=== PATIENT | female | born 1975 | race Two or more races ===

== ENCOUNTER 2023-04-13 11:41 | Emergency (ER) | payer MEDICAID, OTHER ==
[~2023-04-13] VITALS: Ht 154.9 cm; Wt 81.2 kg
[2023-04-13 14:03] VITALS: BP 107/84; PULSE 80; RESP 80; TEMP 98; O2SAT 100
[2023-04-13] MEDS ORDERED: PANT40TA2 PO (14:24)
== END 2023-04-13 14:26 | disposition home or self-care (01) ==
LOC: ER 11:41
DX: K29.70 Gastritis, unspecified, without bleeding (principal); Z79.899 Other long term (current) drug therapy; Z88.0 Allergy status to penicillin

== ENCOUNTER 2024-04-23 13:14 | Emergency (ER) | payer MEDICAID ==
[~2024-04-23] VITALS: Ht 154.9 cm; Wt 86.8 kg
[~2024-04-23 13:14] MED LIST: PANT40TA2 PO
[2024-04-23 14:44] VITALS: BP 116/87; PULSE 74; RESP 18; TEMP 98.1; O2SAT 99
[2024-04-23] MEDS: IBUPROFEN 800 MG TAB PO ONE (14:54)
--- NOTE | 2024-04-23 14:58 | ED.PDOC ---
History of Present Illness HPI Comments A 49 YEAR OLD FEMALE PRESENTS TO THE ED WITH COMPLAINT OF RIGHT ANKLE PAIN. PATIENT STATES SHE FRACTURED HER RIGHT ANKLE 1 WEEK AGO, BUT WAS ONLY PRESCRIBED NAPROXEN AND NOTES THIS MEDICATION HAS NOT BEEN HELPING HER PAIN. PATIENT IS REQUESTING A DIFFERENT PAIN MEDICATION IN THE ED. PATIENT DENIES FEVER, CHILLS, SHORTNESS OF BREATH, CHEST PAIN, ABDOMINAL PAIN, NAUSEA, VOMITING, HEADACHE, OR OTHER COMPLAINTS. NO OTHER SYMPTOMS OR MODIFYING FACTORS AT THIS TIME. PATIENT IS ALERT, ORIENTED X 4, AND HAS STEADY GAIT. Chief Complaint: Lower Extremity Time Seen by MD: 13:33 Reviewed Notes: Nurses Notes, Medications, Allergies Allergies: Coded Allergies: Penicillins (Verified Allergy, Unknown, 04/13/23) Home Meds Active Scripts Ibuprofen (Ibuprofen) 800 Mg Tab, 1 TAB PO TID, #30 TAB Prov:SOTERO MARQUEZ 04/23/24 Pantoprazole Sodium Sesquihydr (Protonix) 40 Mg Tab, 40 MG PO DAILY for 30 Days, #30 TAB 0 Refills Prov:NICANOR GRIFFITH SPRAYER AUTOMATIC SPRAY MACHINE 04/13/23 Information Source: Patient Mode of Arrival: Wheelchair Severity: Moderate Timing: Days Duration: Since onset, Days Prehospital treatment: None Medication Refill: For: Pain, For: Other (RIGHT ANKLE PAIN) Past Medical History PAST MEDICAL HISTORY: Denies Surgical History: Denies all surgeries GEOGRAPHY HEAD History: No Pertinent GEOGRAPHY HEAD History Family History Family History: Reviewed,noncontributory to illness Social History Smoker: Non-Smoker Alcohol: Denies ETOH Use Drugs: Denies Drug Use Lives In: Home Constitutional: denies: chills, diaphoresis, fatigue, fever, malaise, sweats, weakness, others EENTM: denies: blurred vision, double vision, ear bleeding, ear discharge, ear drainage, ear pain, ear ringing, eye pain, eye redness, hearing loss, mouth pain, mouth swelling, nasal discharge, nose bleeding, nose congestion, nose pain, photophobia, tearing, throat pain, throat swelling, voice changes, others Respiratory: denies: cough, hemoptysis, orthopnea, SOB at rest, shortness of breath, SOB with excertion, stridor, wheezing, others Cardiovascular: denies: chest pain, dizzy spells, diaphoresis, Dyspnea on exertion, edema, irregular heart beat, left arm pain, lightheadedness, palpitations, PND, syncope, others Gastrointestinal: denies: abdomen distended, abdominal pain, blood streaked bowels, constipated, diarrhea, dysphagia, difficulty swallowing, hematemesis, melena, nausea, poor appetite, poor fluid intake, rectal bleeding, rectal pain, vomiting, others Genitourinary: denies: abnormal vagina bleeding, burning, dyspareunia, dysuria, flank pain, frequency, hematuria, incontinence, pain, , vagina discharge, urgency, others Neurological: denies: dizziness, fainting, headache, left sided numbness, left sided weakness, numbness, paresthesia, pre-existing deficit, right sided numbness, right sided weakness, seizure, speech problems, tingling, tremors, weakness, others Musculoskeletal: reports: joint pain, others (RIGHT ANKLE PAIN); denies: back pain, gout, joint swelling, muscle pain, muscle stiffness, neck pain Integumetry: denies: bruises, change in color, change in hair/nails, dryness, laceration, lesions, lumps, rash, wounds, others Allergic/Immunocompromised: denies: Difficulty Healing, Frequent Infections, Hives, Itching, others Hematologic/Lymphatic: denies: anemia, blood clots, easy bleeding, easy bruising, swollen glands, others Endocrine: denies: excessive hunger, excessive sweating, excessive thirst, excessive urination, flushing, intolerance to cold, intolerance to heat, une xplained weight gain, unexplained weight loss, others Psychiatric: denies: anxiety, bipolar disorder, depression, hopeless, panic disorder, schizophrenia, sleepless, suicidal, others All Other Systems: Reviewed and Negative Physical Exam General Appearance: No Apparent Distress, Obese HEENT: Normal ENT Inspection, PERRL/EOMI, Pharynx Normal, TMs Normal Neck: Full Range of Motion, Non-Tender, Normal, Normal Inspection Respiratory: Chest Non-Tender, Lungs Clear, No Accessory Muscle Use, No Res piratory Distress, Normal Breath Sounds Cardiovascular: No Edema, No JVD, No Murmur, No Gallop, Normal Peripheral Pulses, Regular Rate/Rhythm Breast Exam: Deferred Gastrointestinal: No Organomegaly, Non Tender, No Pulsatile Mass, Normal Bowel Sounds, Soft Genitalia: Deferred Pelvic: Deferred Rectal: Deferred Extremities: Decreased range of motion, No calf tenderness, Normal capillary refill, No pedal edema, Tender (ON RIGHT ANKLE, NO DEFORMITY, SPLINT INTACT ON RIGHT LOWER EXTREMITY, NEUROVASCULAR INTACT. ) Musculoskeletal : Apperance: Normal Neurologic: Alert, restaurant delivery driver II-XII nml as Tested, No Motor Deficits, Normal Affect, Normal Mood, No Sensory Deficits Cerebellar Function: Normal Reflexes: Normal Skin: Dry, Normal Color, Warm Peripheral Pulses: 2+ carotid (R), 2+ carotid (L), 2+ dorsalis pedis (R), 2+ dorsalis pedis (L) Lymphatic: No Adenopathy Was a procedure done? Was a procedure done?: No Differential Dx Considerations may include: HISTORY OF RIGHT ANKLE FRACTURE, PAIN MANAGEMENT X-Ray, Labs, Meds, VS Vital Signs Date Time Temp Pulse Resp B/P (MAP) Pulse Ox O2 Delivery O2 Flow Rate FiO2 04/23/24 14:44 74 18 99 Room Air 04/23/24 14:44 98.1 74 18 116/87 (97) 99 98.1 04/23/24 13:59 98.1 74 18 116/87 (97) 99 Current Medications Medications (Trade) Dose Ordered Sig/Hayden Route Start Time Stop Time Status Last Admin Ibuprofen (Motrin Tablet) 800 mg ONCE ONCE PO 04/23/24 15:00 04/23/24 15:01 04/23/24 14:54 X-Ray, Labs, Meds, VS Comment EXTERNAL MEDICAL RECORDS REVIEWED: [NONE] INDEPENDENT HISTORIANS: [NONE] SOCIAL DETERMINANTS OF HEALTH: [NONE] LABS ORDERED: NONE REVIEWED AND INTERPRETED RESULTS: NONE IMAGING ORDERED: NONE TREATMENTS ORDERED: IBUPROFEN 800 MG P.O. PROCEDURES PERFORMED: NONE CRITICAL CARE TIME: NONE I HAVE DISCUSSED THE PATIENT WITH THE ATTENDING PHYSICIAN DR. ALBARRAN AND SHE AGREES WITH THE PATIENT'S PLAN OF CARE AND DISPOSITION. BASED ON HISTORY OF PRESENT ILLNESS, AND PHYSICAL EXAM, PATIENT WILL BE DISCHARGED HOME. DISCUSSED PLAN FOR DISCHARGE HOME WITH RX [IBUPROFEN 800MG]. MEDICATION WARNINGS GIVEN. SHARED DECISION MAKING: PATIENT INSTRUCTED TO FOLLOW UP WITH PRIMARY CARE PROVIDER IN 1-2 DAYS FOR RE-EVALUATION OF SYMPTOMS. PATIENT VERBALIZES UNDERSTANDING TO RETURN TO ED FOR NEW OR WORSENING SYMPTOMS OR IF FOLLOW UP WITH PCP CANNOT BE OBTAINED. PATIENT FEELS COMFORTABLE GOING HOME AT THIS TIME. ALL QUESTIONS ADDRESSED AT TIME OF DISCHARGE. Time of 1ST Reevaluation: 15:01 Reevaluation 1ST: Improved Patient Education/Counseling: Diagnosis, Treatment, Need For Follow Up Family Education/Counseling: Diagnosis, Treatment, Need For Follow Up Medical Screening: No EMC Exist At This Time Departure 1 Departure Time of Disposition: 15:01 Impression: Primary Impression: Pain management Additional Impression: History of fracture of right ankle Disposition: 01 HOME / SELF CARE / HOMELESS Condition: Stable Additional Instructions: FOLLOW-UP WITH PCP IN 1 TO 2 DAYS FOR REFERRAL TO DIE MAINTENANCE. TAKE MEDICATIONS PRESCRIBED. RETURN TO ED FOR ANY NEW OR WORSENING SYMPTOMS. e-Prescriptions Ibuprofen (Ibuprofen) 800 Mg Tab 1 TAB PO TID, #30 TAB Prov: SOTERO MARQUEZ 04/23/24 Discharged With: Self Critical Care Note Critical Care Time?: No Stability Stability form required: No I personally scribed for SOTERO MARQUEZ ([email or web address]) on 04/23/24 at 14:58. Electronically submitted by Bryan Mishra ([email or web address]). SOTERO MARQUEZ Apr 23, 2024 14:58
[2024-04-23] MEDS ORDERED: IBUP-1456 PO (14:59)
== END 2024-04-23 15:04 | disposition home or self-care (01) ==
LOC: ER 13:14
DX: M25.571 Pain in right ankle and joints of right foot (principal); Z79.899 Other long term (current) drug therapy; Z88.0 Allergy status to penicillin
CPT/HCPCS: 99282; J7030

== ENCOUNTER 2024-05-03 09:51 | Inpatient (IN) | payer MEDICAID ==
[~2024-05-03] VITALS: Ht 154.9 cm; Wt 86.8 kg
[~2024-05-03 09:51] MED LIST changes: +IBUP-1456 PO
--- NOTE | 2024-05-03 10:50 | ED.PDOC ---
Musculoskeletal HPI Comments 49y F who presents to the ED for chief complaint of lower extremity pain. Pt states she had mechanical fall 2 weeks when when she tripped and fell on staircase onto pavement. Pt states she was seen at local ED, and pt was Orthopedic surgeon and states she had x-rays done which showed fracture of R ankle. Orthopedist applied splint to right leg and was told to come to ED for further evaluation. Pt states she needs to hospitalized and surgery for fracture of R ankle. Pt has no noted redness, swelling, or edema to RLE. Pt otherwise denies any fever, chills, chest pain, shortness of breath, or any associated symptoms. Pt otherwise denies any other symptoms at this time. Chief Complaint: Lower Extremity Time Seen by MD: 10:47 Primary Care Provider: TAYLOR Goff Notes: Nurses Notes, Medications, Allergies Allergies: Coded Allergies: Penicillins (Verified Allergy, Unknown, 04/13/23) Home Meds Active Scripts Ibuprofen (Ibuprofen) 800 Mg Tab, 1 TAB PO TID, #30 TAB Prov:SOTERO MARQUEZ 04/23/24 Pantoprazole Sodium Sesquihydr (Protonix) 40 Mg Tab, 40 MG PO DAILY for 30 Days, #30 TAB 0 Refills Prov:NICANOR GRIFFITH COMMERCIAL CRABBER 04/13/23 Information Source: Patient Mode of Arrival: Wheelchair Brought in by: daughter Location: Right Extremity Location: Ankle Timing: Weeks Prehospital treatment: Other (splint to R ankle) Severity: Moderate Able to Move Extremity: Yes Bear Weight: Limited Pain: Moderate Mechanism: Spontaneous Circumstances: Fall Onset of Symptoms: Spontaneous DVT Risk Factors: NONE Last Tetanus: Unknown Associated signs and symptoms: None Past Medical History PAST MEDICAL HISTORY: HTN Surgical History: Cholecystectomy, , Tubal Ligation TOOL AND DIE TECHNICIAN History: No Pertinent TOOL AND DIE TECHNICIAN History Family History Family History: Reviewed,noncontributory to illness Social History Smoker: Non-Smoker Alcohol: Denies ETOH Use Drugs: Denies Drug Use Lives In: Home Constitutional: denies: chills, diaphoresis, fatigue, fever, malaise, sweats, weakness, others EENTM: denies: blurred vision, double vision, ear bleeding, ear discharge, ear drainage, ear pain, ear ringing, eye pain, eye redness, hearing loss, mouth pain, mouth swelling, nasal discharge, nose bleeding, nose congestion, nose pain, photophobia, tearing, throat pain, throat swelling, voice changes, others Respiratory: denies: cough, hemoptysis, orthopnea, SOB at rest, shortness of breath, SOB with excertion, stridor, wheezing, others Cardiovascular: denies: chest pain, dizzy spells, diaphoresis, Dyspnea on exertion, edema, irregular heart beat, left arm pain, lightheadedness, palpitations, PND, syncope, others Gastrointestinal: denies: abdomen distended, abdominal pain, blood streaked bowels, constipated, diarrhea, dysphagia, difficulty swallowing, hematemesis, melena, nausea, poor appetite, poor fluid intake, rectal bleeding, rectal pain, vomiting, others Genitourinary: denies: abnormal vagina bleeding, burning, dyspareunia, dysuria, flank pain, frequency, hematuria, incontinence, pain, , vagina discharge, urgency, others Neurological: denies: dizziness, fainting, headache, left sided numbness, left sided weakness, numbness, paresthesia, pre-existing deficit, right sided numbness, right sided weakness, seizure, speech problems, tingling, tremors, weakness, others Musculoskeletal: reports: joint pain (R ankle); denies: back pain, gout, joint swelling, muscle pain, muscle stiffness, neck pain, others Integumetry: denies: bruises, change in color, change in hair/nails, dryness, laceration, lesions, lumps, rash, wounds, others Allergic/Immunocompromised: denies: Difficulty Healing, Frequent Infections, Hives, Itching, others Hematologic/Lymphatic: denies: anemia, blood clots, easy bleeding, easy bruising, swollen glands, others Endocrine: denies: excessive hunger, excessive sweating, excessive thirst, excessive urination, flushing, intolerance to cold, intolerance to heat, unexplained weight gain, unexplained weight loss, others Psychiatric: denies: anxiety, bipolar disorder, depression, hopeless, panic disorder, schizophrenia, sleepless, suicidal, others All Other Systems: Reviewed and Negative Physical Exam General Appearance: Moderate Distress HEENT: Normal ENT Inspection, Pharynx Normal, TMs Normal Neck: Full Range of Motion, Non-Tender, Normal, Normal Inspection Respiratory: Chest Non-Tender, Lungs Clear, No Accessory Muscle Use, No Respiratory Distress, Normal Breath Sounds Cardiovascular: No Edema, No JVD, No Murmur, No Gallop, Normal Peripheral Pulses, Regular Rate/Rhythm Breast Exam: Deferred Gastrointestinal: No Organomegaly, Non Tender, No Pulsatile Mass, Normal Bowel Sounds, Soft Genitalia: Deferred Pelvic: Deferred Rectal: Deferred Extremities: No calf tenderness, Normal capillary refill, No pedal edema, Other (Right leg in posterior splint) Musculoskeletal : Apperance: Normal Neurologic: Alert, cut off operator scorer II-XII nml as Tested, No Motor Deficits, Normal Affect, Normal Mood, No Sensory Deficits Cerebellar Function: Normal Reflexes: Normal Skin: Dry, Normal Color, Warm Lymphatic: No Adenopathy Was a procedure done? Was a procedure done?: No Differential Diagnosis EXT Differential Diagnosis: Deep Vein Thrombosis, Fracture, Sprain, Dislocation X-Ray, Labs, Meds, VS Vital Signs Date Time Temp Pulse Resp B/P (MAP) Pulse Ox O2 Delivery O2 Flow Rate FiO2 05/03/24 10:00 98.4 62 18 139/81 (100) 99 Lab Test 05/03/24 11:39 05/03/24 10:44 Range/Units Urine Color Colorless Yellow Urine Clarity Turbid H Clear Urine pH 6.5 5.0-9.0 Urine Specific [place] 1.011 1.001-1.035 Urine Protein Negative Negative Urine Ketones Negative Negative Urine Blood Trace H Negative /uL Urine Nitrite Negative Negative Urine Bilirubin Negative Negative Urine Urobilinogen Normal Negative mg/dL Urine Leukocyte Esterase 3+ Negative /uL Urine RBC 15 0 - 4 /hpf Urine Microscopic WBC 59 H 0-5 /HPF Urine Squamous Epithelial Cells Many <5 /hpf Urine Bacteria None seen None Seen /hpf Urine Mucus Few None Seen Urine Yeast (Budding) Occasional None Seen /hpf Urine Glucose Normal Normal mg/dL Urine Test Negative Negative White Blood Count 5.3 4.4-10.8 10^3/uL Red Blood Count 4.43 4.0-5.20 10^6/uL Hemoglobin 12.5 12.2-16.2 g/dL Hematocrit 37.7 36.0-46.0 % Mean Corpuscular Volume 85.0 80.0-100.0 fL Mean Corpuscular Hemoglobin 28.2 28.0-32.0 pg Mean Corpuscular Hemoglobin Concent 33.2 32.0-36.0 g/dL Red Cell Distribution Width 16.1 H 11.8-14.3 % Platelet Count 303 140-450 10^3/uL Mean Platelet Volume 8.1 6.9-10.8 fL Neutrophils (%) (Auto) 55.7 37.0-80.0 % Lymphocytes (%) (Auto) 34.0 10.0-50.0 % Monocytes (%) (Auto) 4.5 0.0-12.0 % Eosinophils (%) (Auto) 5.3 0.0-7.0 % Basophils (%) (Auto) 0.5 0.0-2.0 % Neutrophils # (Auto) 3.0 1.6-8.6 10 ^3/uL Lymphocytes # (Auto) 1.8 0.4-5.4 10 ^3/uL Monocytes # (Auto) 0.2 0-1.3 10 ^3/uL Eosinophils # (Auto) 0.3 0-0.8 10 ^3/uL Basophils # (Auto) 0 0-0.2 10 ^3/uL Nucleated Red Blood Cells 0.1 % Prothrombin Time 10.1 9.3-11.8 sec Prothrombin Time INR 0.95 0.9-1.15 Activated Partial Thromboplast Time 24.8 24.5-34.5 SEC Sodium Level 139 136-145 mmol/L Potassium Level 4.3 3.5-5.1 mmol/L Chloride Level 105 98-107 mmol/L Carbon Dioxide Level 29 20-31 mmol/L Anion Gap 5 5-15 Blood Urea Nitrogen 11 9-23 mg/dL Creatinine 0.77 0.550-1.02 mg/dL Glomerular Filtration Rate Calc 95 >90 mL/min BUN/Creatinine Ratio 14.3 10.0-20.0 Serum Glucose 90 74-106 mg/dL Calcium Level 9.6 8.7-10.4 mg/dL CHEST RADIOGRAPH IMPRESSION: No evidence of acute disease. The CBC and chemistry panel are within normal limits The INR is 0.95 The patient was being typed and screened The urine test is positive for UTI so the patient was being started on Levaquin 500 mg IV piggyback We spoke with Dr. Saul who is the orthopedic surgeon on-call He will be consulting on this patient The patient was being admitted at this time The patient understands and agrees with the management. Images Reviewed?: Images reviewed and evaluated by me Time of 1ST Reevaluation: 11:20 Reevaluation 1ST: Unchanged Patient Education/Counseling: Diagnosis, Treatment, Prognosis Family Education/Counseling: Diagnosis, Treatment, Prognosis Additional Information - I reviewed the following notes from patient's past medical encounters: - The following tests were ordered, and results were reviewed by me: (Labs, X- Ray, EKG): cbc, ptptt, ua, bmp, ekg x1, type and screen, urine , chest x-ray - Additional information was gathered from interviewing the following independent Historian: (Family, Other Providers, EMT): daughter - I reviewed and agreed with the following test results read by other provider: (X-ray, CT, US): radiologist - I discussed treatments and results with medical personnel and: (consultants, family): none Departure 1 Departure Time of Disposition: 12:52 Impression: Primary Impression: Closed right trimalleolar fracture Qualified Codes: S82.851D - Displaced trimalleolar fracture of right lower leg, subsequent encounter for closed fracture with routine healing Additional Impression: UTI (urinary tract infection) Qualified Codes: N30.00 - Acute cystitis without hematuria Disposition: ADMITTED INPATIENT Admit to: Med Surg Condition: Fair Critical Care Note Critical Care Time?: No Stability Stability form required: Yes Unstable for transfer: ED Physician Assesment (Clinical assesment) Heart Score Heart Score: Heart Score Response (Comments) Value History N/A 0 EKG N/A 0 Age N/A 0 Risk Factors N/A 0 Troponin N/A 0 Total 0 I personally scribed for TIMUR PALMER MD ([email or web address]) on 05/03/24 at 10:50. Electronically submitted by Elena Howard ([facility] [place] [facility] [email or web address] I personally scribed for TIMUR PALMER MD ([email or web address]) on 05/03/24 at 12:42. Electronically submitted by Elena JACKSON). TIMUR PALMER MD May 03, 2024 10:50
[2024-05-03 11:18] LABS: Basophils # (auto) 0 10 ^3/uL (0-0.2); Basophils % (auto) 0.5 % (0.0-2.0); Eosinophils # (auto) 0.3 10 ^3/uL (0-0.8); Eosinophils % (auto) 5.3 % (0.0-7.0); Hematocrit 37.7 % (36.0-46.0); Hemoglobin 12.5 g/dL (12.2-16.2); Lymphocytes # (auto) 1.8 10 ^3/uL (0.4-5.4); Mean Corpuscular Hemoglobin 28.2 pg (28.0-32.0); Mean Corpuscular Hgb Conc. 33.2 g/dL (32.0-36.0); Monocytes # (auto) 0.2 10 ^3/uL (0-1.3); Monocytes % (auto) 4.5 % (0.0-12.0); Neutrophils % (auto) 55.7 % (37.0-80.0); Nucleated Red Blood Cells % 0.1 %; Platelet Count (auto) 303 10^3/uL (140-450); Red Blood Cells 4.43 10^6/uL (4.0-5.20); Red Cell Distribution Width 16.1 % (11.8-14.3); White Blood Cell 5.3 10^3/uL (4.4-10.8)
[2024-05-03 11:34] LABS: INR 0.95 (0.9-1.15); Partial Thromboplastin Time 24.8 SEC (24.5-34.5); Prothrombin Time 10.1 sec (9.3-11.8)
[2024-05-03 11:38] LABS: Carbon Dioxide 29 mmol/L (20-31); Potassium 4.3 mmol/L (3.5-5.1); Sodium 139 mmol/L (136-145)
[2024-05-03 11:39] LABS: Calcium 9.6 mg/dL (8.7-10.4)
[2024-05-03 11:41] LABS: Urine Bacteria None Seen /hpf (None Seen)
[2024-05-03 11:44] LABS: BUN/Creatinine Ratio 14.3 (10.0-20.0); Blood Urea Nitrogen 11 mg/dL (9-23); Glucose 90 mg/dL (74-106)
[2024-05-03 12:07] LABS: Anion Gap 5 (5-15); Chloride 105 mmol/L (98-107)
[2024-05-03 12:09] LABS: Urine Blood TRACE /uL (Negative); Urine Budding Yeast OCCASIONAL /hpf (None Seen); Urine Clarity Turbid (Clear); Urine Color Colorless (Yellow); Urine Mucus FEW (None Seen); Urine Protein, UAD Negative (Negative); Urine Specific Gravity 1.011 (1.001-1.035); Urine Squamous Epithelial Cell MANY /hpf (<5); Urine Urobilinogen Normal (Negative); Urine WBC 59 /HPF (0-5); Urine pH 6.5 (5.0-9.0)
--- NOTE | 2024-05-03 12:34 | DVH ---
CHEST RADIOGRAPH Indication: Pain Technique: Frontal and lateral view of the chest was obtained Comparison: None FINDINGS: Lines and Tubes: None Lungs: Clear Pleura: No effusion. No pneumothorax. Cardiomediastinal contours: Unremarkable Bones: Unremarkable IMPRESSION: No evidence of acute disease.
[2024-05-03] MEDS ORDERED: levoFLOXacin 500MG 100 ML IV ONE (13:00)
[2024-05-03 14:06] VITALS: PULSE 61; RESP 14; O2SAT 96
[2024-05-03] MEDS: CIPROFLOXACIN 400MG/200ML 200 ML IV ONE (14:14)
[2024-05-03] MEDS ORDERED: ACETAMINOPHEN 325 MG TAB PO PRN (15:15)
[2024-05-03] MEDS ORDERED: DOCUSATE SOD 100 MG CAP PO PRN (15:15)
[2024-05-03] MEDS ORDERED: hydrALAZINE HCL 20 MG/ML VL IV PRN (15:15)
--- NOTE | 2024-05-03 15:27 | DVHHP2 ---
History of Present Illness Reason for Visit: Closed right trimalleolar fracture History of Present Illness The patient is a 49-year-old female with past medical history of hypertension who presented to [facility] ED with complaint of right ankle pain. Patient reports she had fall 2 weeks prior on staircase onto pavement with sustained right ankle injury. Patient reports she was seen at local ED, being followed by Orthopedic surgeon, had x-rays done which showed fracture of R ankle. Orthopedist applied splint to right leg and was told to come to ED for further evaluation. Patient was seen and evaluated in the ED, laboratory data shows WBC 5.3, platelets 303, sodium 139, potassium 4.3, BUN 11, creatinine 0.77, GFR 95, glucose 90, blood pressure 149/82, heart rate 61, temperature 97.8 F, O2 saturation 96% on room air. Please see medication orders section in the computer. On my assessment, patient denied chest pain, no headache, no dizziness, no diaphoresis, no shortness of breath, no abdominal pain, no diarrhea, no nausea, no vomiting, no fever, no chills. Patient was admitted for further evaluation and medical management. Past Medical History Hypertension Past Surgical History Cholecystectomy, , Tubal Ligation Family History Reviewed, noncontributory to the management of this case. Past Social History The patient lives at home, denies smoking, alcohol or illicit drugs abuse. Review of Systems Constitutional: No: Fever, Chills, Sweats, Weakness, Malaise, Other Eyes: No: Pain, Vision change, Conjunctivae inflammation, Eyelid inflammation, Other, Redness ENT: No: Ear pain, Ear discharge, Nose pain, Nose discharge, Nose congestion, Mouth pain, Mouth swelling, Throat pain, Throat swelling, Other Respiratory: No: Cough, Dry, Shortness of breath, SOB with excertion, Wheezing, Hemoptysis, Pleuritic Pain, Sputum, Wheezing, Other Cardiovascular: No: Chest Pain, Palpitations, Orthopnea, Paroxysmal Noc. Dyspnea, Edema, Lt Headedness, Other Gastrointestinal: No: Nausea, Vomiting, Abdominal Pain, Diarrhea, Constipation, Melena, Hematochezia, Other Genitourinary: No Dysuria, No Frequency, No Incontinence, No Hematuria, No Retention, No Other Musculoskeletal: other (Right ankle pain); No: neck pain, shoulder pain, arm pain, back pain, hand pain, leg pain, foot pain Skin: No: Rash, Lesions, Jaundice, Bruising, Other Neurological: No: Weakness, Numbness, Incoordination, Change in speech, Confusion, Seizures, Other Allergies: Coded Allergies: Penicillins (Verified Allergy, Unknown, 04/13/23) Medications Current Medications Medications Dose Ordered Sig/Hayden Route Start Time Stop Time Status Last Admin Dose Admin Levofloxacin/ Dextrose 100 ml @ 100 mls/hr DAILY IV 05/04/24 10:00 UNV Hydralazine HCl 10 mg Q6HP PRN IV 05/03/24 15:15 UNV Acetaminophen/ Hydrocodone Bitart 1 tab Q4HP PRN PO 05/03/24 15:15 UNV Ondansetron HCl 4 mg Q4HP PRN IV 05/03/24 15:15 UNV Docusate Sodium 100 mg BIDPRN PRN PO 05/03/24 15:15 UNV Enoxaparin Sodium 40 mg DAILY SC 05/04/24 10:00 UNV Acetaminophen 650 mg Q6HP PRN PO 05/03/24 15:15 UNV Morphine Sulfate 2 mg Q4HPRN PRN IV 05/03/24 15:15 UNV Exam Vital Signs Vital Signs Date Time Temp Pulse Resp B/P (MAP) Pulse Ox O2 Delivery O2 Flow Rate FiO2 05/03/24 14:06 61 14 96 Room Air* 0 21 05/03/24 14:05 97.8 149/82 (104) 97.8 General Appearance: Alert, Oriented X3, Cooperative, No acute distress HEENT: Atraumatic, PERRLA, EOMI, Mucous membr. moist/pink Respiratory: Clear to auscultation, Normal air movement Cardiovascular: Regular rate, Normal S1, Normal S2, No murmurs Abdominal: Normal bowel sounds, Soft, No tenderness, No hepatospenomegaly, No masses Extremities: No clubbing, No cyanosis, No edema, Normal pulses, Other (Right a nkle pain/swelling) Skin: No rashes, No breakdown, No significant lesion Neuro: Normal gait, Normal speech, Strength at 5/5 X4 ext, Normal tone, Sensation intact, Cranial nerves 3-12 NL, Reflexes 2+ Psych/Mental Status: Mental status NL, Mood NL Labs/Xrays Labs Test 05/03/24 11:39 05/03/24 10:44 Range/Units Urine Color Colorless Yellow Urine Clarity Turbid H Clear Urine pH 6.5 5.0-9.0 Urine Specific [place] 1.011 1.001-1.035 Urine Protein Negative Negative Urine Ketones Negative Negative Urine Blood Trace H Negative /uL Urine Nitrite Negative Negative Urine Bilirubin Negative Negative Urine Urobilinogen Normal Negative mg/dL Urine Leukocyte Esterase 3+ Negative /uL Urine RBC 15 0 - 4 /hpf Urine Microscopic WBC 59 H 0-5 /HPF Urine Squamous Epithelial Cells Many <5 /hpf Urine Bacteria None seen None Seen /hpf Urine Mucus Few None Seen Urine Yeast (Budding) Occasional None Seen /hpf Urine Glucose Normal Normal mg/dL Urine Test Negative Negative White Blood Count 5.3 4.4-10.8 10^3/uL Red Blood Count 4.43 4.0-5.20 10^6/uL Hemoglobin 12.5 12.2-16.2 g/dL Hematocrit 37.7 36.0-46.0 % Mean Corpuscular Volume 85.0 80.0-100.0 fL Mean Corpuscular Hemoglobin 28.2 28.0-32.0 pg Mean Corpuscular Hemoglobin Concent 33.2 32.0-36.0 g/dL Red Cell Distribution Width 16.1 H 11.8-14.3 % Platelet Count 303 140-450 10^3/uL Mean Platelet Volume 8.1 6.9-10.8 fL Neutrophils (%) (Auto) 55.7 37.0-80.0 % Lymphocytes (%) (Auto) 34.0 10.0-50.0 % Monocytes (%) (Auto) 4.5 0.0-12.0 % Eosinophils (%) (Auto) 5.3 0.0-7.0 % Basophils (%) (Auto) 0.5 0.0-2.0 % Neutrophils # (Auto) 3.0 1.6-8.6 10 ^3/uL Lymphocytes # (Auto) 1.8 0.4-5.4 10 ^3/uL Monocytes # (Auto) 0.2 0-1.3 10 ^3/uL Eosinophils # (Auto) 0.3 0-0.8 10 ^3/uL Basophils # (Auto) 0 0-0.2 10 ^3/uL Nucleated Red Blood Cells 0.1 % Prothrombin Time 10.1 9.3-11.8 sec Prothrombin Time INR 0.95 0.9-1.15 Activated Partial Thromboplast Time 24.8 24.5-34.5 SEC Sodium Level 139 136-145 mmol/L Potassium Level 4.3 3.5-5.1 mmol/L Chloride Level 105 98-107 mmol/L Carbon Dioxide Level 29 20-31 mmol/L Anion Gap 5 5-15 Blood Urea Nitrogen 11 9-23 mg/dL Creatinine 0.77 0.550-1.02 mg/dL Glomerular Filtration Rate Calc 95 >90 mL/min BUN/Creatinine Ratio 14.3 10.0-20.0 Serum Glucose 90 74-106 mg/dL Calcium Level 9.6 8.7-10.4 mg/dL Assessment/Plan Assessment/Plan Closed right trimalleolar fracture UTI (urinary tract infection) Acute cystitis without hematuria Displaced trimalleolar fracture of right lower leg, subsequent encounter for closed fracture with routine healing Plan 1. Admit to med surge unit 2. Breathing treatment 3. Pain control management 4. IV antibiotic management 5. Management of fluids and electrolytes 6. Consultation for orthopedic 7. Diagnostic test chest x-ray 8. DVT prophylaxis on Lovenox 9. Repeat labs CBC, CMP in a.m. 10. Home medication reviewed and reconciled 11. Continue with current medical management 12. Treatment plan discussed with patient and RN. Patient verbalized understanding. Plan discussed with: Patient, Daughter (At bedside), Other (RN) My Orders Orders - ENRIQUE HO DNP Procedure Category Date Status Time Levofloxacin 500mg PHA 05/04/24 Logged (Levaquin 500mg/ 100m 10:00 Hydralazine Injection PHA 05/03/24 Logged (Apresoline Inject 15:15 Allergies HORACE 05/03/24 In Process 15:03 Code Status CODE 05/03/24 Transmitted 15:03 2 Gm Sodium Diet DIET 05/03/24 Transmitted Dinner Oxygen Per Hour RT 05/03/24 Transmitted 15:03 Hydrocodone-Acet PHA 05/03/24 Logged 5/325mg Tab (Gore 15:15 Docusate Sodium PHA 05/03/24 Logged Capsule (Colace 15:15 Enoxaparin Sodium PHA 05/04/24 Logged (Lovenox) 10:00 Complete Blood Count LAB 05/04/24 Verified 04:00 Comprehensive LAB 05/04/24 Verified Metabolic Panel 04:00 Condition: Serious HORACE 05/03/24 In Process 15:03 Acetaminophen Tablet PHA 05/03/24 Logged (Tylenol Tablet) 15:15 Bedrest With Bathroom HORACE 05/03/24 In Process Privileg 15:03 Morphine Sulfate PHA 05/03/24 Logged Injection 15:15 * Orthopedic Consult CONS 05/03/24 Transmitted 15:03 Ondansetron Hcl PHA 05/03/24 Logged (Zofran) 15:15 Admit ADMIT 05/03/24 Verified 15:26 Nitroglycerin PHA 05/03/24 Verified Sublingual (Ntrostat 15:30 Morphine Sulfate PHA 05/03/24 Verified Injection 15:30 Notify Md Of Changes [facility] 05/03/24 Verified From Base 15:26 Emergency Dysrhythmia [facility] 05/03/24 Verified Protocol 15:26 Oxygen By Nasal RT 05/03/24 Verified Cannula 15:26 Problem List: (1) Closed right trimalleolar fracture (2) UTI (urinary tract infection) (3) Acute cystitis without hematuria (4) Displaced trimalleolar fracture of right lower leg, subsequent encounter for closed fracture with routine healing Date of Service: May 03, 2024 Billing Provider: ENRIQUE HO DNP Common Visit Codes: [id number] INP/OBS CARE (HIGH) ENRIQUE HO DNP May 03, 2024 15:27
[2024-05-03] MEDS ORDERED: MORPHINE SULFATE INJ 2 MG/ml SYRG IV PRN (15:30)
[2024-05-03] MEDS ORDERED: NITROGLYCERIN 0.4 MG SL TAB SL PRN (15:30)
[2024-05-03] MEDS: HYDROcodone-ACET 5/325MG TAB PO PRN (16:17)
[2024-05-03] MEDS: levoFLOXacin 500 MG TAB PO SCH (16:41)
[2024-05-03] MEDS: ONDANSETRON HCL 4 MG/2 ML VIAL IV PRN (18:35)
[2024-05-03] MEDS: MORPHINE SULFATE INJ 2 MG/ml SYRG IV PRN (18:36)
[2024-05-03 22:13] VITALS: PULSE 67; RESP 19; O2SAT 98
[2024-05-03 22:39] VITALS: BP 134/70; PULSE 66; RESP 18; TEMP 97.8; O2SAT 95; O2SAT 98
[2024-05-03] MEDS ORDERED: GABA-1250 (23:20)
[2024-05-03] MEDS ORDERED: BUSP5TAB51 PO (23:20)
[2024-05-03] MEDS ORDERED: LISI10TA34 PO (23:20)
[2024-05-04] VITALS (11 sets, daily range): BP systolic 94–146; BP diastolic 53–93; PULSE 62–95; RESP 12–20; TEMP 97.7–98.1; O2SAT 90–100
[2024-05-04 06:59] LABS: Basophils # (auto) 0 10 ^3/uL (0-0.2); Basophils % (auto) 0.1 % (0.0-2.0); Eosinophils # (auto) 0.2 10 ^3/uL (0-0.8); Eosinophils % (auto) 4.4 % (0.0-7.0); Hematocrit 37.8 % (36.0-46.0); Hemoglobin 12.6 g/dL (12.2-16.2); Lymphocytes # (auto) 1.8 10 ^3/uL (0.4-5.4); Lymphocytes % (auto) 35.3 % (10.0-50.0); Mean Corpuscular Hemoglobin 28.3 pg (28.0-32.0); Mean Corpuscular Hgb Conc. 33.2 g/dL (32.0-36.0); Mean Corpuscular Volume 85.2 fL (80.0-100.0); Monocytes # (auto) 0.3 10 ^3/uL (0-1.3); Monocytes % (auto) 6.8 % (0.0-12.0); Neutrophils # (auto) 2.7 10 ^3/uL (1.6-8.6); Neutrophils % (auto) 53.4 % (37.0-80.0); Nucleated Red Blood Cells % 0.1 %; Platelet Count (auto) 246 10^3/uL (140-450); Red Blood Cells 4.43 10^6/uL (4.0-5.20); Red Cell Distribution Width 16.4 % (11.8-14.3); White Blood Cell 5.1 10^3/uL (4.4-10.8)
[2024-05-04 07:12] LABS: Alanine Aminotransferase 21 U/L (7-40); Anion Gap 6 (5-15); Calcium 9.2 mg/dL (8.7-10.4); Carbon Dioxide 26 mmol/L (20-31); Glucose 91 mg/dL (74-106); Potassium 4.3 mmol/L (3.5-5.1); Sodium 139 mmol/L (136-145)
[2024-05-04 07:13] LABS: Albumin 3.7 g/dL (3.2-4.8)
[2024-05-04 07:14] LABS: Bilirubin, Total 0.3 mg/dL (0.2-1.0); Total Protein 5.8 g/dL (5.7-8.2)
[2024-05-04 07:15] LABS: Alkaline Phosphatase 124 U/L (46-116); Aspartate Aminotransferase 41 U/L (13-40); Blood Urea Nitrogen 9 mg/dL (9-23); Chloride 107 mmol/L (98-107)
[2024-05-04] MEDS ORDERED: fentaNYL CITRATE 100 MCG/2 ML VL ONE (09:52)
--- NOTE | 2024-05-04 09:53 | PRN ---
DIVYA JOSE RESIDENT 05/04/24 0953: Misceleneous Note Note Note Patient with PMHx of HTN and fibromyalgia, who has a trimalleolar fracture 3 weeks ago, patient was seen by orthopedic surgeon who consider open reduction. patients work up showed up sterile piuria no urinary symptoms. Xray normal, Patient is cleared for surgery. Case discussed with MARTI Sharma MD 05/08/24 1502: DIVYA JOSE RESIDENT May 04, 2024 09:53 MARTI BALBUENA MD May 08, 2024 15:02
[2024-05-04] MEDS: ENOXAPARIN SOD 40 MG/0.4 ML SYRINGE SC SCH (10:00)
[2024-05-04] MEDS ORDERED: levoFLOXacin 500MG 100 ML IV SCH (10:00)
[2024-05-04] MEDS: ceFAZolin 2 GM/D5W100ml 100 ML IV ONE (10:03)
--- NOTE | 2024-05-04 10:10 | DVHHP2 ---
History Allergies: Coded Allergies: Penicillins (Verified Allergy, Unknown, 04/13/23) Chief Complaint: Right ankle fracture s/p mechanical fall in [place] 2 wks ago Pt was unable to bear weight, presented to ED in [place], NO closed reduction performed, noted to have a trimalleolar fracture dislocation, splinted, presente d to [facility] ER yesterday, 05/03/24 Present Illness(Onset/Duration Mechanical fall, no AMS or hitting head, [place], presented to ED, Xrays taken showing lateral trimalleolar fracture dislocation, no reduction done, placed in [employer], pt has been NWB, presented to [facility] ED yesterday, admitted for ORIF Past Surgical History cholecystectomy without complications Medications see admitting H and P Physical Exam Skin intact Chest and Lungs CTA B Heart RRR neg MRG Abdomen NBS ND NT Extremities Right ankle, lateral displacement, tenting of medial skin, good capp refill Vital Signs Vital Signs Date Time Temp Pulse Resp B/P (MAP) Pulse Ox O2 Delivery O2 Flow Rate FiO2 05/04/24 08:57 97.7 62 20 107/68 (81) 90 97.7 05/03/24 22:39 Room Air* 0 21 Impressions/Description 05/03/24 Xray right ankle, trimalleolar fracture dislocation with significant lateral displacement of talus Plan 1) admit to internal medicine 2) NPO 3) consent for ORIF of right ankle fracture patient aware of very high risk for post traumatic arthritis and fixation failure with recurrent lateral subluxation of talus, given lack of reduction in ED in [place] and two week period of dislocation Patient aware of these risks and has consented to ORIF with full understanding SCOOTER SUN MD May 04, 2024 10:10
[2024-05-04] MEDS ORDERED: ePHEDrine SULFATE 50 MG/ML AMP ONE (10:33)
[2024-05-04] MEDS ORDERED: ONDANSETRON HCL 4 MG/2 ML VIAL ONE (10:45)
[2024-05-04] MEDS ORDERED: PROPOFOL 10 MG/ML 20 ML IV ONE (10:45)
[2024-05-04] MEDS ORDERED: DexAMETHasone SOD PHOS 10MG/1ML VIAL INJ ONE (10:45)
[2024-05-04] MEDS ORDERED: MEPERIDINE HCL (25 MG/ML) 1ML VIAL ONE ×2 (10:47→11:18)
[2024-05-04] MEDS ORDERED: ACETAMINOPHEN IV 1000 MG/100ML (10MG/ML) IV PRN (11:45)
[2024-05-04] MEDS ORDERED: MEPERIDINE HCL (25 MG/ML) 1ML VIAL IV PRN (11:45)
--- NOTE | 2024-05-04 11:45 | DVHOP2 ---
Operative Report - 2 Report Details Date: 05/04/24 Preop Diagnosis: Right ankle trimalleolar fracture dislocation Postop Diagnosis: same Surgeon: Scooter Benoit MD Licensed Architect: ZARA Fernandez Anesthesiologist: Dr Gaona Anesthesia: Regional Drains: none Implant: Lateral plate, medial screws Consent: The patient was informed of the risks and benefits of the procedure. These include but are not limited to complications of anesthesia, postoperative infection, incomplete relief of symptoms, recurrence of symptoms, damage to blood vessels, nerves and tendons, deep venous thrombosis, pulmonary embolism and possible need for repeat surgery in the future. Complications: none Estimated Blood Loss: 50 cc Fluids: 1 L crystalloid Findings: trimalleolar laterally displaced fracture dislocation, intact articular cartil age Indications for Surgery: gross disloacation of talus out from under tibial plafond Name of Procedure Performed Right ankle open reduction internal fixation Procedure Details Procedure Details: Patient brought to the operating room given Ancef 1 g IV piggyback preoperatively with no allergic response sterile prep and drape of right lower extremity after placing a nonsterile tourniquet right proximal thigh and bump under right buttock time-out performed comprehension right side correct side open reduction internal fixation right ankle trimalleolar fracture dislocation correct procedure after review of the operative consent history and physical my initials on right ankle Exsanguination with Esmarch tourniquet elevated to 250 mm of mercury total tourniquet time 30 minutes longitudinal incision made over the medial aspect of the ankle sharp dissection through skin down to subcutaneous tissue blunt dissection down to deep fascia retracting saphenous vein and nerve anteriorly curette used to expose fracture and elevate fascia out from fracture site as well as evaluate joint articular surface some scar within the joint tib talar joint but no significant damage to weightbearing articular cartilage fracture reduced with a bone tenaculum and two cannulated screw guidewires placed from the fragment up into the tibial metaphysis as and 240 mm cannulated screws placed into the medial malleolus C-arm fluoro taken showing anatomic alignment attention of the then addressed to the lateral joint longitudinal incision made from tip of fibula proximally 10 cm sharp dissection through skin down the subcutaneous tissue blunt dissection down to deep fascia subperiosteal elevation performed fracture reduced with a crab claw and lateral plate placed with three locking or nonlocking cortical screws proximally and four locking cancellous screws distally unicortical and then syndesmosis screw through the plate with the foot dorsiflexed C-arm fluoro taken showing anatomic alignment of vanco with good closure of mortise no articular step-off or no fracture step-off or displacement and that is on AP and lateral views tourniquet let down excellent hemostasis noted irrigation with normal saline closed with 2-0 Vicryl subcutaneous skin anna fluffs ABD loose Carlos wrap walker boot strict nonweightbearing six weeks thank you much Specimen: none Condition Stable Disposition Still a Patient SCOOTER BENOIT MD May 04, 2024 11:45
--- NOTE | 2024-05-04 11:52 | DVH ---
XY R ANKLE 2 VIEW XRAY, HISTORY: RT ANKLE ORIF TECHNICAL DATA: 9 intraoperative fluoroscopic spot images were obtained of the ankle. COMPARISON: None FINDINGS/IMPRESSION: C-arm fluoroscopic images were obtained for anatomic localization. The images are of low resolution b ut demonstrate instrumentation over the ankle . Total fluoroscopy time was 5.2 seconds. DAP 0.11 Plea se see the operative report for further details.
[2024-05-04] MEDS: HYDROmorphone HCL 2 MG/ML VL/or syr IV PRN (11:55)
[2024-05-04] MEDS: ACETAMINOPHEN IV 1000 MG/100ML (10MG/ML) IV PRN (12:47)
[2024-05-04] MEDS ORDERED: ceFAZolin 1GM/50ML 50 ML IV SCH ×2 (14:00)
[2024-05-04] MEDS: D5W/SOD CHL 0.45%/KCL 20MEQ 1,000 ML IV SCH (15:20)
--- NOTE | 2024-05-04 15:43 | DVHPNRES ---
Progress Note Date Seen: May 04, 2024 Resident Creating Document: DIVYA JOSE RESIDENT Has the PT tested + for MRSA If YES, has PT been informed?: No Medical Necessity Reason Pt with a Central, PICC or Fol: No Medical Necessity Reason Right ankle trimalleolar fracture dislocation Subjective Review of Systems Patient with past medical history of hyperlipidemia, fibromyalgia, rheumatoid arthritis, lumbar osteoarthritis, sciatica, type 2 diabetes mellitus, anxiety depression, who came to the ED due to a fall 3 weeks ago, patient was stepping down a single step when she had the fall. Patient was seen by Dr. Molina who advised to come to the ED for further management. in X ray was found to have a trimalleolar fracture of right ankle which required surgical management Objective vital signs Vital Sign Date Time Temp Pulse Resp B/P (MAP) Pulse Ox O2 Delivery O2 Flow Rate FiO2 05/04/24 13:45 114 19 148/98 05/04/24 13:00 Nasal Cannula 2.0 05/04/24 13:00 99 05/04/24 11:28 97.7 97.7 05/03/24 22:39 21 Total Intake and Output 05/03/24 05/03/24 05/04/24 15:00 23:00 07:00 Intake Total 200 ml 240 ml Balance 200 ml 240 ml medications Current Medications Medications Dose Ordered Sig/Hayden Route Start Time Stop Time Status Last Admin Dose Admin Hydralazine HCl 10 mg Q6HP PRN IV 05/03/24 15:15 Acetaminophen/ Hydrocodone Bitart 1 tab Q4HP PRN PO 05/03/24 15:15 05/04/24 15:11 1 TAB Ondansetron HCl 4 mg Q4HP PRN IV 05/03/24 15:15 05/04/24 15:12 4 MG Docusate Sodium 100 mg BIDPRN PRN PO 05/03/24 15:15 Enoxaparin Sodium 40 mg DAILY SC 05/04/24 10:00 Acetaminophen 650 mg Q6HP PRN PO 05/03/24 15:15 Morphine Sulfate 2 mg Q4HPRN PRN IV 05/03/24 15:15 05/04/24 13:45 2 MG Nitroglycerin 0.4 mg Q5MINP PRN SL 05/03/24 15:30 Morphine Sulfate 2 mg Q30M PRN IV 05/03/24 15:30 Levofloxacin 500 mg DAILY PO 05/03/24 16:15 05/04/24 15:11 500 MG Hydromorphone HCl 0.5 mg Q10M PRN IV 05/04/24 11:45 05/04/24 16:00 05/04/24 12:27 0.5 MG Meperidine HCl 25 mg Q10M PRN IV 05/04/24 11:45 05/04/24 16:00 Potassium Chloride/Dextrose/ Sod Cl 1,000 ml @ 150 mls/hr Q6H40M IV 05/04/24 11:45 05/04/24 15:20 150 MLS/HR Cefazolin Sodium 50 ml @ 50 mls/hr Q8HR IV 05/04/24 14:00 05/04/24 22:59 Examination General Appearance: Alert, Oriented X3, Cooperative, No acute distress HEENT: Atraumatic, PERRLA, EOMI, Mucous membr. moist/pink Respiratory: Clear to auscultation, Normal air movement Cardiovascular: Regular rate, Normal S1, Normal S2, No murmurs Abdominal: Normal bowel sounds, Soft, No tenderness, No hepatospenomegaly, No masses Extremities: Splint in right leg Skin: No rashes, No breakdown, No significant lesion Neuro: Normal gait, Normal speech, Strength at 5/5 X4 ext, Normal tone, Sensation intact, Cranial nerves 3-12 NL, Reflexes 2+ Psych/Mental Status: Mental status NL, Mood NL laboratory and microbiology Laboratory Tests 05/04/24 06:15 Test 05/04/24 06:15 Range/Units Serum Glucose 91 74-106 mg/dL Microbiology Date/Time Source Procedure Growth Status 05/03/24 11:39 Voided Urine Urine Culture - Preliminary Resulted Problem List/Assessment/Plan Problem List/Assessment/Plan #Right ankle trimalleolar fracture dislocation #s/p Right ankle open reduction internal fixation #Sterile Pyuria #Ho of Hypertension #Ho of fibromyalgia #Ho of RA Cardiac diet Pain managment Resume lisinopril Per surgical team: start PT in 2 weeks Lipid panel, TSH, HbA1c ordered Case discussed with Dr Balbuena Time spent on care 23 min Plan discussed with: Patient, Other (rn) Date of Service: May 04, 2024 Billing Provider: MARTI BALBUENA MD Common Visit Codes: [id number] INP/OBS CARE(HIGH) DIVYA JOSE RESIDENT May 04, 2024 15:43 MARTI BALBUENA MD May 08, 2024 15:02
[2024-05-04] MEDS: KETOROLAC TROMETH 30 MG/ML 1ML VIAL IV PRN (17:40)
[2024-05-04] MEDS: LISINOPRIL 5 MG TAB PO SCH (17:42)
[2024-05-04] MEDS: ROPIVACAINE 0.5% (5MG/ML) 20ML AMPULE IJ ONE (19:36)
[2024-05-04] MEDS: BUPIVACAINE HCL 0 ML ONE (19:36)
[2024-05-04] MEDS: ONDANSETRON HCL 4 MG/2 ML VIAL IV ONE (19:37)
[2024-05-04] MEDS: oxyCODONE HCL 5MG TAB PO PRN (20:51)
[2024-05-04] MEDS: GABAPENTIN 300 MG CAP PO SCH (21:02)
[2024-05-05] VITALS (7 sets, daily range): BP systolic 120–147; BP diastolic 65–83; PULSE 88–97; RESP 18; TEMP 98.3–98.7; O2SAT 94–98
[2024-05-05 07:39] LABS: Cholesterol 173 mg/dL (< 200); Triglycerides 80 mg/dL (< 150)
[2024-05-05 07:41] LABS: HDL Cholesterol 46 mg/dL (40-59)
[2024-05-05 07:42] LABS: LDL Cholesterol 113 mg/dL (< 100)
--- NOTE | 2024-05-05 11:56 | DVHPN2 ---
Progress Note - Dictate Date Seen: May 05, 2024 Has the PT tested + for MRSA If YES, has PT been informed?: No Medical Necessity Reason Pt with a Central, PICC or Fol: No Subjective Patient was lying comfortably in bed during my evaluation reports some postoperative ankle pain that is being somewhat improved with the help of pain medication. Patient reports that she has not yet gotten up and walked with physical therapy but was aware that she was to remain nonweightbearing on the operative side. Patient is otherwise feeling well denying any other complaints or concerns during my evaluation. vital signs Vital Sign Date Time Temp Pulse Resp B/P (MAP) Pulse Ox O2 Delivery O2 Flow Rate FiO2 05/05/24 09:15 120/65 05/05/24 09:00 98.3 88 18 94 98.3 05/05/24 08:20 Room Air* 0 21 Total Intake and Output 05/04/24 05/04/24 05/05/24 15:00 23:00 07:00 Intake Total 200 ml 200 ml 1800 ml Balance 200 ml 200 ml 1800 ml medications Current Medications Medications Dose Ordered Sig/Hayden Route Start Time Stop Time Status Last Admin Dose Admin Acetaminophen/ Hydrocodone Bitart 1 tab Q4HP PRN PO 05/03/24 15:15 05/04/24 15:11 1 TAB Ondansetron HCl 4 mg Q4HP PRN IV 05/03/24 15:15 05/04/24 21:34 4 MG Docusate Sodium 100 mg BIDPRN PRN PO 05/03/24 15:15 Enoxaparin Sodium 40 mg DAILY SC 05/04/24 10:00 05/05/24 09:11 40 MG Acetaminophen 650 mg Q6HP PRN PO 05/03/24 15:15 Nitroglycerin 0.4 mg Q5MINP PRN SL 05/03/24 15:30 Morphine Sulfate 2 mg Q30M PRN IV 05/03/24 15:30 Lisinopril 10 mg DAILY PO 05/04/24 16:15 05/05/24 09:15 10 MG Ketorolac Tromethamine 30 mg Q6HPRN PRN IV 05/04/24 16:45 05/09/24 16:44 05/04/24 17:40 30 MG Oxycodone HCl 10 mg Q6HPRN PRN PO 05/04/24 19:45 05/05/24 11:41 10 MG Gabapentin 300 mg DAILY PO 05/04/24 22:00 05/05/24 09:09 300 MG objective A&O x4 in no acute distress Ankle range of motion not fully evaluated as patient remains in CAM boot Dressings clean, dry, and intact No distal edema or calf tenderness to palpation Neurovascularly intact with cap refill less than 2 seconds laboratory and microbiology Laboratory Tests 05/04/24 06:15 Test 05/04/24 06:15 Range/Units Serum Glucose 91 74-106 mg/dL Assessment/Plan Continue current management as well as pain control and advised patient to remain nonweightbearing to her operative foot for six weeks from the date of surgery and to ambulate with the assistance of a walker or crutches. Patient may be considered for discharge home from an orthopedic standpoint and advised her to follow up with our office in 10-14 days for her 1st postoperative evaluation. She understood and agreed. Thank you for allowing us to participate in the care of your patient. Plan discussed with: Patient DAVID MARY May 05, 2024 11:56
[2024-05-05] MEDS: GABAPENTIN 300 MG CAP PO SCH (13:05)
[2024-05-05] MEDS ORDERED: ACET-1882 PO (18:06)
[2024-05-05] MEDS ORDERED: DICL50TA2 PO (18:06)
--- NOTE | 2024-05-05 18:30 | DVHDSRES ---
Discharge Summary Date of Admission Resident Creating Document: DIVYA JOSE RESIDENT May 03, 2024 at 15:26 Date of Discharge: May 05, 2024 Admitting Diagnosis #Right ankle trimalleolar fracture dislocation #s/p Right ankle open reduction internal fixation #Sterile Pyuria #Ho of Hypertension #Ho of fibromyalgia #Ho of RA Labs/Diagnostic Data: Laboratory Results Test 05/05/24 06:40 05/04/24 06:15 05/03/24 11:39 05/03/24 10:44 Hemoglobin A1c 5.1 % A1C (<5.7) Triglycerides Level 80 mg/dL (< 150) Cholesterol Level 173 mg/dL (< 200) LDL Cholesterol 113 mg/dL (< 100) HDL Cholesterol 46 mg/dL (40-59) Thyroid Stimulating Hormone (TSH) 0.98 uIU/mL (0.55-4.78) White Blood Count 5.1 10^3/uL (4.4-10.8) Red Blood Count 4.43 10^6/uL (4.0-5.20) Hemoglobin 12.6 g/dL (12.2-16.2) Hematocrit 37.8 % (36.0-46.0) Mean Corpuscular Volume 85.2 fL (80.0-100.0) Mean Corpuscular Hemoglobin 28.3 pg (28.0-32.0) Mean Corpuscular Hemoglobin Concent 33.2 g/dL (32.0-36.0) Red Cell Distribution Width 16.4 % (11.8-14.3) Platelet Count 246 10^3/uL (140-450) Mean Platelet Volume 8.0 fL (6.9-10.8) Neutrophils (%) (Auto) 53.4 % (37.0-80.0) Lymphocytes (%) (Auto) 35.3 % (10.0-50.0) Monocytes (%) (Auto) 6.8 % (0.0-12.0) Eosinophils (%) (Auto) 4.4 % (0.0-7.0) Basophils (%) (Auto) 0.1 % (0.0-2.0) Neutrophils # (Auto) 2.7 10 ^3/uL (1.6-8.6) Lymphocytes # (Auto) 1.8 10 ^3/uL (0.4-5.4) Monocytes # (Auto) 0.3 10 ^3/uL (0-1.3) Eosinophils # (Auto) 0.2 10 ^3/uL (0-0.8) Basophils # (Auto) 0 10 ^3/uL (0-0.2) Nucleated Red Blood Cells 0.1 % Sodium Level 139 mmol/L (136-145) Potassium Level 4.3 mmol/L (3.5-5.1) Chloride Level 107 mmol/L (98-107) Carbon Dioxide Level 26 mmol/L (20-31) Anion Gap 6 (5-15) Blood Urea Nitrogen 9 mg/dL (9-23) Creatinine 0.75 mg/dL (0.550-1.02) Glomerular Filtration Rate Calc 98 mL/min (>90) BUN/Creatinine Ratio 12.0 (10.0-20.0) Serum Glucose 91 mg/dL (74-106) Calcium Level 9.2 mg/dL (8.7-10.4) Total Bilirubin 0.3 mg/dL (0.2-1.0) Aspartate Amino Transferase (AST) 41 U/L (13-40) Alanine Aminotransferase (ALT) 21 U/L (7-40) Alkaline Phosphatase 124 U/L (46-116) Total Protein 5.8 g/dL (5.7-8.2) Albumin 3.7 g/dL (3.2-4.8) Urine Color Colorless (Yellow) Urine Clarity Turbid (Clear) Urine pH 6.5 (5.0-9.0) Urine Specific [place] 1.011 (1.001-1.035) Urine Protein Negative (Negative) Urine Ketones Negative (Negative) Urine Blood Trace /uL (Negative) Urine Nitrite Negative (Negative) Urine Bilirubin Negative (Negative) Urine Urobilinogen Normal mg/dL (Negative) Urine Leukocyte Esterase 3+ /uL (Negative) Urine RBC 15 /hpf (0 - 4) Urine Microscopic WBC 59 /HPF (0-5) Urine Squamous Epithelial Cells Many /hpf (<5) Urine Bacteria None seen /hpf (None Seen) Urine Mucus Few (None Seen) Urine Yeast (Budding) Occasional /hpf (None Urine Glucose Normal mg/dL (Normal) Urine Test Negative (Negative) Prothrombin Time 10.1 sec (9.3-11.8) Prothrombin Time INR 0.95 (0.9-1.15) Activated Partial Thromboplast Time 24.8 SEC (24.5-34.5) Other Laboratory Tests 05/04/24 06:15 Brief Hx & Hospital Course: A 49-year-old female with a history of fibromyalgia, rheumatoid arthritis, lumbar osteoarthritis, sciatica, type 2 diabetes mellitus, and hyperlipidemia presented with a right ankle trimalleolar fracture-dislocation following a fall three weeks prior. She underwent open reduction and internal fixation of the ankle, followed by pain management and supportive care. Initial urine culture revealed growth of gram-positive rods resembling diphtheroids, no need of treatment. Blood work showed normal HbA1c and a comprehensive metabolic panel was unremarkable During her hospital stay, the patient was managed with a cardiac diet, continuation of analgesia, and resumed antihypertensive therapy. Discharge planning included outpatient physical therapy initiation in two weeks . She was advised to m to follow-up appointments for surgical care. Further instructions included recognizing signs of infection or wound complications and contacting her care team promptly if these occur. Dc with home analgesics, patient has a wheelchair at home. General Appearance: Alert, Oriented X3, Cooperative, No acute distress HEENT: Atraumatic, PERRLA, EOMI, Mucous membr. moist/pink Respiratory: Clear to auscultation, Normal air movement Cardiovascular: Regular rate, Normal S1, Normal S2, No murmurs Abdominal: Normal bowel sounds, Soft, No tenderness, No hepatospenomegaly, No masses Extremities: Splint in right leg Skin: No rashes, No breakdown, No significant lesion Neuro: Normal gait, Normal speech, Strength at 5/5 X4 ext, Normal tone, Sensation intact, Cranial nerves 3-12 NL, Reflexes 2+ Psych/Mental Status: Mental status NL, Mood NL Case discussed with Dr Balbuena Time spent on care 23 min Consults/Reason for consult ortho due to ankle fracture Operations or Procedures Name of Procedure Performed Right ankle open reduction internal fixation Procedure Details Procedure Details: Patient brought to the operating room given Ancef 1 g IV piggyback preoperatively with no allergic response sterile prep and drape of right lower extremity after placing a nonsterile tourniquet right proximal thigh and bump under right buttock time-out performed comprehension right side correct side open reduction internal fixation right ankle trimalleolar fracture dislocation correct procedure after review of the operative consent history and physical my initials on right ankle Exsanguination with Esmarch tourniquet elevated to 250 mm of mercury total tourniquet time 30 minutes longitudinal incision made over the medial aspect of the ankle sharp dissection through skin down to subcutaneous tissue blunt dissection down to deep fascia retracting saphenous vein and nerve anteriorly curette used to expose fracture and elevate fascia out from fracture site as well as evaluate joint articular surface some scar within the joint tib talar joint but no significant damage to weightbearing articular cartilage fracture reduced with a bone tenaculum and two cannulated screw guidewires placed from the fragment up into the tibial metaphysis as and 240 mm cannulated screws placed into the medial malleolus C-arm fluoro taken showing anatomic alignment attention of the then addressed to the lateral joint longitudinal incision made from tip of fibula proximally 10 cm sharp dissection through skin down the subcutaneous tissue blunt dissection down to deep fascia subperiosteal elevation performed fracture reduced with a crab claw and lateral plate placed with three locking or nonlocking cortical screws proximally and four locking cancellous screws distally unicortical and then syndesmosis screw through the plate with the foot dorsiflexed C-arm fluoro taken showing anatomic alignment of vanco with good closure of mortise no articular step-off or no fracture step-off or displacement and that is on AP and lateral views tourniquet let down excellent hemostasis noted irrigation with normal saline closed with 2-0 Vicryl subcutaneous skin anna fluffs ABD loose Carlos wrap walker boot strict nonweightbearing six weeks thank you much Specimen: none Condition at Discharge: Stable Final Diagnosis/Problems List #Right ankle trimalleolar fracture dislocation #s/p Right ankle open reduction internal fixation #Sterile Pyuria #Ho of Hypertension #Ho of fibromyalgia #Ho of RA Discharge Disposition: Home Discharge Instruct/Medications Diet: Regular Activity: Bed rest Activity comment: start PT after ortho follow up Follow Up/Referral: fu with ortho and pcp Medications: see prescription Discharge Statement: "Patient was advised to return to the ER or call 911 if any headaches, dizziness, shortness of breath, chest pain, abdominal pain, bleeding, fevers, or worsening of medical condition. Patient was counseled about treatment plan, medications, possible side effects, patientverbalized understanding. All questions were answered to the best of my ability. This discharge took greater then 30 minutes in planning, reviewing documentation, counseling the patient, and discussing with other team members." ASSESSMENT ASSESSMENT Assessment s/p open reduction ankle fracture Date of Service: May 05, 2024 Billing Provider: MARTI BALBUENA MD Common Visit Codes: 08647-GXL/OBS DISCH DAY >30min DIVYA JOSE RESIDENT May 05, 2024 18:30 MARTI BALBUENA MD May 08, 2024 15:03
[2024-05-05] MEDS ORDERED: TRAM-626 PO (19:38)
--- NOTE | 2024-05-06 12:32 | ECG ---
[facility] Test Date: 2024-05-04 Test Time: 03:47:26 Pat Name: DIVYA STILL Department: Respiratoy Room: 0222 A Gender: F Wardrobe Attendant: : 1975 Requested By: ENRIQUE HO Order Number: [id number] Reading MD: Haroldo Dockery Measurements Intervals [place] Rate: 59 P: 65 ID: [id number] QRS: 35 QRSD: 93 T: 29 QT: 446 QTc: 442 Interpretive Statements Sinus rhythm Electronically Signed On 05-07-2024 19:34:19 PST by Haroldo Dockery Please click the below link to view image of tracing.
--- NOTE | 2024-05-08 09:34 | DVHHP2 ---
History Allergies: Coded Allergies: Penicillins (Verified Allergy, Unknown, 04/13/23) Chief Complaint: 49F, left leg pain, deformity s/p mechanical trip/fall on stairs, 05/06/24. No hitting head, no AMS before or after fall. No PMH, PSH landy without complications, no meds , no allergies to meds admitted to internal med, NPO since last night Present Illness(Onset/Duration Left leg, distal tib/fib fracture Past Surgical History cholecystectomy without complications Medications none declared Physical Exam Skin intact EENT NCAT Chest and Lungs CTA B Heart RRR neg MRG Abdomen NBS ND NT Extremities Left leg, in [employer], able to feel all toes, move all toes, good capp refill all toes Other Imaging XR 05/07/24 left distal tib/fib fracture, non articular Impressions/Description 49F, no significant PMH, with left distal tib/fib fracture Plan admit to internal medicine NPO past midnight surgery, Open reduction internal fixation left distal tibia, fibula fracture SCOOTER SUN MD May 08, 2024 09:34
[2024-05-08] MEDS ORDERED: D5W/SOD CHL 0.45%/KCL 20MEQ 1,000 ML IV SCH (13:45)
[2024-05-08] MEDS ORDERED: ONDANSETRON HCL 4 MG/2 ML VIAL IV PRN (13:45)
[2024-05-08] MEDS ORDERED: NITROGLYCERIN 0.4 MG SL TAB SL PRN (13:45)
[2024-05-08] MEDS ORDERED: ceFAZolin 1GM/50ML 50 ML IV SCH (14:00)
== END 2024-05-05 19:55 | disposition home or self-care (01) | DRG 313 ==
LOC: ER 09:51 → OVERFLOW 15:26 → CENTRAL 22:38
PROVIDERS: ADMIT Orthopaedic Surgery; ATTEND Emergency Medicine
PROC: 0QSJ04Z Reposition Right Fibula with Internal Fixation Device, Open Approach (ICD-10-PCS; 2024-05-04)
PROC: 0QSG04Z Reposition Right Tibia with Internal Fixation Device, Open Approach (ICD-10-PCS; principal; 2024-05-04 10:03)
DX: S82.851A Displaced trimalleolar fracture of right lower leg, initial encounter for closed fracture (principal); E78.5 Hyperlipidemia, unspecified; I10 Essential (primary) hypertension; N30.00 Acute cystitis without hematuria; W01.0XXA Fall on same level from slipping, tripping and stumbling without subsequent striking against object, initial encounter; M79.7 Fibromyalgia; M06.9 Rheumatoid arthritis, unspecified; M47.816 Spondylosis without myelopathy or radiculopathy, lumbar region; F32.A Depression, unspecified; F41.9 Anxiety disorder, unspecified; Z88.0 Allergy status to penicillin; Z79.899 Other long term (current) drug therapy; Z90.49 Acquired absence of other specified parts of digestive tract; Z98.891 History of uterine scar from previous surgery; Y93.89 Activity, other specified; Y92.89 Other specified places as the place of occurrence of the external cause; Y99.8 Other external cause status
CPT/HCPCS: 36415; 71046; 73600; 76000; 80048; 80053; 80061; 81001; 81025; 83036; 84443; 85025; 85610; 85730; 86850; 86900; 86901; 87081; 87086; 93005; 96365; 96375; 97163; G0378; J0131; J1100; J1885; J2405; J2704; J3490

== ENCOUNTER 2025-01-26 09:02 | Outpatient (CLI) | payer MEDICAID ==
[~2025-01-26 09:02] MED LIST changes: +ACET-1882 PO; +BUSP5TAB51 PO; +DICL50TA2 PO; +GABA-1250; +LISI10TA34 PO; +TRAM-626 PO
[2025-01-26 09:27] LABS: Hematocrit 42.2 % (36.0-46.0); Hemoglobin 14.2 g/dL (12.2-16.2); Mean Corpuscular Hemoglobin 28.6 pg (28.0-32.0); Mean Corpuscular Volume 85.1 fL (80.0-100.0); Nucleated Red Blood Cells % 0.1 %
[2025-01-26 09:50] LABS: Alanine Aminotransferase 40 U/L (7-40); Albumin 4.6 g/dL (3.2-4.8); Anion Gap 9 (5-15); BUN/Creatinine Ratio 11.0 (10.0-20.0); Blood Urea Nitrogen 10 mg/dL (9-23); Calcium 9.7 mg/dL (8.7-10.4); Carbon Dioxide 27 mmol/L (20-31); Chloride 105 mmol/L (98-107); HDL Cholesterol 44 mg/dL (40-59); Potassium 4.6 mmol/L (3.5-5.1); Sodium 141 mmol/L (136-145); Total Protein 8.0 g/dL (5.7-8.2)
[2025-01-26 09:51] LABS: Bilirubin, Total 0.5 mg/dL (0.2-1.0)
[2025-01-26 09:53] LABS: Alkaline Phosphatase 150 U/L (46-116); Cholesterol 238 mg/dL (< 200); Glucose 111 mg/dL (74-106); Triglycerides 195 mg/dL (< 150)
== END 2025-01-26 17:00 | disposition home or self-care (01) ==
LOC: LAB 09:02
PROVIDERS: ATTEND Licensed Practical Nurse
DX: Z11.2 Encounter for screening for other bacterial diseases (principal); Z13.220 Encounter for screening for lipoid disorders; Z79.899 Other long term (current) drug therapy
CPT/HCPCS: 36415; 80053; 80061; 82270; 82306; 85025

== ENCOUNTER → 2025-03-28 | Outpatient (CLI) | payer MEDICAID ==
[2025-03-28 10:23] LABS: Hematocrit 41.1 % (36.0-46.0); Hemoglobin 13.8 g/dL (12.2-16.2); Mean Corpuscular Hemoglobin 29.2 pg (28.0-32.0); Mean Corpuscular Volume 87.0 fL (80.0-100.0); Nucleated Red Blood Cells % 0.0 %
[2025-03-28 10:54] LABS: Alanine Aminotransferase 23 U/L (7-40); Albumin 4.3 g/dL (3.2-4.8); Anion Gap 7 (5-15); BUN/Creatinine Ratio 10.5 (10.0-20.0); Calcium 9.7 mg/dL (8.7-10.4); Carbon Dioxide 27 mmol/L (20-31); Chloride 107 mmol/L (98-107); Glucose 100 mg/dL (74-106); HDL Cholesterol 59 mg/dL (40-59); Potassium 4.8 mmol/L (3.5-5.1); Sodium 141 mmol/L (136-145); Total Protein 7.1 g/dL (5.7-8.2); Triglycerides 125 mg/dL (< 150)
[2025-03-28 10:55] LABS: Bilirubin, Total 0.3 mg/dL (0.2-1.0)
[2025-03-28 10:57] LABS: Alkaline Phosphatase 157 U/L (46-116); Blood Urea Nitrogen 8 mg/dL (9-23); Cholesterol 206 mg/dL (< 200)
== END | disposition home or self-care (01) ==
LOC: LAB 09:57
PROVIDERS: ATTEND Licensed Practical Nurse
DX: I10 Essential (primary) hypertension (principal); E78.5 Hyperlipidemia, unspecified
CPT/HCPCS: 36415; 80053; 80061; 85025